=== PATIENT | female | born 1940 | race Caucasian/White ===

== ENCOUNTER 2022-11-18 11:35 | Outpatient (CLI) | payer MEDICARE, BC | END 2022-11-18 11:36 | disposition home or self-care (01) | LOC: RAD-FRANK 11:35 | PROVIDERS: ATTEND Nurse Practitioner Family | DX: R05.1 Acute cough (principal); I51.7 Cardiomegaly; J98.4 Other disorders of lung | CPT/HCPCS: 71046 ==

== ENCOUNTER 2022-11-25 03:20 | Emergency (ER) | payer MEDICARE, BC ==
[2022-11-25] MEDS ORDERED: Morphine 4 MG/ML VIAL ONE (03:56)
[2022-11-25] MEDS ORDERED: Acetaminophen 325 MG TAB ONE (03:56)
[2022-11-25 04:35] LABS: #Eosinphils 0.1 thou/uL (0.0-0.7); #Monocytes 0.9 thou/uL (0.11-0.59); %Basophils 0.5 % (0.0-1.0); %Eosinophils 1.2 % (0.0-10.0); %Lymphocytes 15.1 % (21.0-51.0); %Neutrophils 68.9 % (42.0-75.0); Hematocrit 37.5 % (36.0-47.0); Hemoglobin 11.7 g/dL (12.0-16.0); Mean Corpuscular HGB CONC 31.2 g/dL (32.0-36.0); Mean Corpuscular Hemoglobin 30.3 pg (27.0-31.0); Mean Corpuscular Volume 97.2 fl (78.0-98.0); Mean Platelet Volume 8.5 fL (7.4-10.4); Platelet Count 379 10x3/uL (130-400); RBC Distribution Width 14.6 % (11.5-14.5); Red Blood Cell (RBC) Count 3.86 mill/uL (4.20-5.40); White Blood Cell (WBC) Count 7.3 10x3/uL (4.8-10.8)
[2022-11-25 04:56] LABS: ALT (SGPT) 24 U/L (8-55); AST (SGOT) 22 U/L (5-34); Albumin 3.4 g/dL (3.4-4.8); Alkaline Phosphatase 76 U/L (40-110); Anion Gap 11 mmol/L (10-20); BUN (Urea Nitrogen) 8 mg/dL (9.8-20.1); Bilirubin, Total 0.3 mg/dL (0.2-1.2); Calc. Creatinine Clearance 0 mL/min (70-130); Calcium 9.1 mg/dL (7.8-10.44); Carbon Dioxide 21 mmol/L (23-31); Chloride 108 mmol/L (98-107); Estimated GFR 62; Globulin 3.8 g/dL (2.4-3.5); Glucose 117 mg/dL (83-110); Lipase 25 U/L (8-78); Potassium 3.8 mmol/L (3.5-5.1); Protein, Total 7.2 g/dL (5.8-8.1); Sodium 136 mmol/L (136-145)
[2022-11-25 05:08] LABS: Troponin I Less than 0.010 ng/mL (< 0.028)
[2022-11-25 07:00] LABS: Bacteria/HPF None Seen HPF (None Seen); Bilirubin Negative (Negative); Blood, Urine Negative (Negative); CAUTI Indications for Culture Fever or rigors; Clarity Clear (Clear); Glucose, Urine (Dipstick) Normal (Negative); Ketone, Urine Negative (Negative); Leukocyte Negative Leu/uL (Negative); Nitrite Negative (Negative); Protein, Urine (Dipstick) Negative (Neg-Trace); Specific Gravity, Urine 1.035 (1.002-1.036); Squamous Epithelial 0-3 HPF (0-3); Urobilinogen Normal mg/dL (Less than 2); WBC/HPF None Seen HPF (0-3); pH, Urine 7.5 (5.0-9.0)
[2022-11-25 07:01] LABS: Urine Culture Reflex No No
[2022-11-25] MEDS ORDERED: Ondansetron ODT 4 MG TAB ONE (08:01)
[2022-11-25] MEDS ORDERED: Iopamidol 370 76% 100 ML VIAL ONE (09:55)
== END 2022-11-25 09:34 | disposition home or self-care (01) ==
LOC: ERS 03:20
DX: R11.2 Nausea with vomiting, unspecified (principal); I10 Essential (primary) hypertension; E03.9 Hypothyroidism, unspecified; Z79.899 Other long term (current) drug therapy
CPT/HCPCS: 36415; 51701; 71045; 74177; 80053; 81001; 83605; 83690; 83880; 84484; 85025; 93005; 96361; 96374; J2270; Q0162; Q9967